=== PATIENT | female | born 1960 | race Caucasian/White ===

== ENCOUNTER 2018-03-04 14:07 | Emergency (ER) | payer OTHER ==
[~2018-03-04] VITALS: Ht 162.6 cm; Wt 74.8 kg
[2018-03-04] MEDS ORDERED: ANTIVERT25 MG PO (14:19)
[2018-03-04] MEDS ORDERED: SYNTHROID100 MC1 PO (14:19)
[2018-03-04] MEDS ORDERED: PAXIL10 MG PO (14:19)
[2018-03-04] MEDS ORDERED: ALLEGRA ALLERG180 MG PO (14:20)
[2018-03-04 15:49] LABS: ABSOLUTE BASOPHILS 0.1 thou/uL (0.0-0.2); ABSOLUTE LYMPHOCYTES 1.6 thou/uL (0.8-5.3); ABSOLUTE MONOCYTES 0.4 thou/uL (0.0-1.2); BASOPHILS 0.9 %; EOSINOPHILS 0.2 %; HEMATOCRIT 40.7 % (37.0-47.0); HEMOGLOBIN 13.9 gm/dL (12.0-15.0); LYMPHOCYTES 19.6 %; MCH 29.9 pg (26.0-34.0); MCHC 34.2 g/dL (28.0-37.0); MCV 87.4 fL (80.0-100.0); MONOCYTES 4.4 %; MPV 8.9 fl. (7.2-11.1); NUCLEATED RBCS 0 /100WBC; PLATELET COUNT* 288 thou/uL (150-400); POLYS 74.9 %; RBC 4.65 mil/uL (4.20-5.00); RDW-CV 13.9 % (10.5-14.5)
[2018-03-04 16:05] LABS: ANION GAP 11 mmol/L (7-16); BUN 11 mg/dL (7-18); CALCIUM 9.5 mg/dL (8.5-10.1); CHLORIDE 103 mmol/L (98-107); CO2 24 mmol/L (21-32); CREATININE 0.8 mg/dL (0.6-1.3); GLUCOSE 106 mg/dL (70-99); POTASSIUM 3.5 mmol/L (3.5-5.1); SODIUM 138 mmol/L (136-145)
[2018-03-04 16:10] LABS: ALKALINE PHOSPHATASE 110 U/L (46-116); SGOT 20 U/L (15-37); SGPT 35 U/L (30-65); TOTAL BILIRUBIN 0.4 mg/dL (<0.1-1.0); TOTAL PROTEIN 7.9 g/dL (6.4-8.2); TROPONIN-I LEVEL <0.06 ng/mL (<0.06)
[2018-03-04] MEDS ORDERED: NABUMETONE 750750 M1 PO (16:23)
[2018-03-04] MEDS ORDERED: ROBAXIN 750 MG750 M1 PO (16:23)
[2018-03-04] MEDS ORDERED: ATIVAN0.5 MG PO (16:39)
--- NOTE | 2018-03-04 17:31 | EKG ---
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1960 Requested By: Deya Yen Order Number: [id number] MD: James Morris Measurements Intervals [place] Rate: 82 P: 78 CO: 181 QRS: 93 QRSD: 92 T: 23 QT: 372 QTc: 435 Interpretive Statements Sinus rhythm Probable left atrial enlargement Borderline right axis deviation Low voltage, precordial leads No previous ECG available for comparison Electronically Signed On 03-04-2018 17:30:55 CDT by James Morris [email or web address] <ELECTRONICALLY SIGNED> By: James Morris MD, [facility] 03/04/18 1730 D: [id number] James Morris MD, FACC /EPI
[2018-03-04 18:00] VITALS: BP 160/79
== END 2018-03-04 18:01 | disposition home or self-care (01) ==
LOC: M.ERS 14:07
PROVIDERS: Nurse Practitioner Family
DX: S16.1XXA Strain of muscle, fascia and tendon at neck level, initial encounter (principal); F41.9 Anxiety disorder, unspecified; R07.89 Other chest pain; M50.322 Other cervical disc degeneration at C5-C6 level; Z88.1 Allergy status to other antibiotic agents; Z88.8 Allergy status to other drugs, medicaments and biological substances; X58.XXXA Exposure to other specified factors, initial encounter; Y93.89 Activity, other specified; Y92.89 Other specified places as the place of occurrence of the external cause; Y99.8 Other external cause status

== ENCOUNTER → 2018-08-07 | Outpatient (CLI) | payer OTHER ==
[~2018-08-07] MED LIST: ALLEGRA ALLERG180 MG PO; ANTIVERT25 MG PO; ATIVAN0.5 MG PO; NABUMETONE 750750 M1 PO; PAXIL10 MG PO; ROBAXIN 750 MG750 M1 PO; SYNTHROID100 MC1 PO
== END ==
LOC: M.RAD 10:58
DX: R05 Cough (principal); R06.2 Wheezing

== ENCOUNTER 2021-04-22 21:37 | Emergency (ER) | payer OTHER ==
[~2021-04-22] VITALS: Ht 162.6 cm; Wt 81.7 kg
[2021-04-22] MEDS ORDERED: VALIUM2 MG PO (21:47)
[2021-04-22 22:22] LABS: HEMATOCRIT 42.4 % (37.0-47.0); HEMOGLOBIN 14.4 gm/dL (12.0-15.0); MCH 30.1 pg (26.0-34.0); MCV 88.5 fL (80.0-100.0); MPV 8.9 fl. (7.2-11.1); RBC 4.79 mil/uL (4.20-5.00); RDW-CV 13.7 % (10.5-14.5); WBC 7.5 thou/uL (4.0-11.0)
[2021-04-22 22:32] LABS: CALCIUM 9.2 mg/dL (8.5-10.1); CREATININE 0.9 mg/dL (0.6-1.3); POTASSIUM 3.7 mmol/L (3.5-5.1)
[2021-04-22 22:52] LABS: ALBUMIN 3.9 g/dL (3.4-5.0); TOTAL BILIRUBIN 0.3 mg/dL (<0.1-1.0); TOTAL PROTEIN 8.1 g/dL (6.4-8.2)
[2021-04-23] MEDS ORDERED: CLONIDINE HCL0.1 MG PO (00:02)
[2021-04-23] MEDS ORDERED: XANAX 0.25 MG0.25 MG PO (00:02)
[2021-04-23 00:17] VITALS: BP 131/65
--- NOTE | 2021-04-23 09:16 | EKG ---
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 : 1960 Requested By: Ann Sanchez Order Number: [id number] MD: Dre Mosquera Measurements Intervals [place] Rate: 103 P: 64 [place]: 185 QRS: 103 QRSD: 93 T: 13 QT: 342 QTc: 448 Interpretive Statements Sinus tachycardia Probable left atrial enlargement Right axis deviation Compared to ECG 03/04/2018 15:11:15 Sinus rhythm no longer present Electronically Signed On 04-23-2021 9:16:45 DIGITAL ENGINEER by Dre Mosquera [email or web address] <ELECTRONICALLY SIGNED> By: Dre Mosquera MD, FACC 04/23/21 0916 45 45 Dre Mosquera MD, [facility] /EPI
== END 2021-04-23 00:18 | disposition home or self-care (01) ==
LOC: M.ERS 21:37
PROVIDERS: Personal Emergency Response Attendant
DX: I16.0 Hypertensive urgency (principal); F41.1 Generalized anxiety disorder; F43.0 Acute stress reaction; F41.9 Anxiety disorder, unspecified; Z90.49 Acquired absence of other specified parts of digestive tract; Z79.899 Other long term (current) drug therapy; Z88.1 Allergy status to other antibiotic agents